=== PATIENT | male | born 1935 | race Two or more races ===

== ENCOUNTER → 2022-01-26 | Emergency (ER) | payer OTHER ==
[~2022-01-26] VITALS: Ht 165.1 cm; Wt 60.3 kg
[~2022-01-26] MED LIST: AVAPRO75 MG PO
== END | disposition home or self-care (01) ==
LOC: ER 20:01
DX: R42 Dizziness and giddiness (principal); I10 Essential (primary) hypertension; Z20.822 Contact with and (suspected) exposure to COVID-19

== ENCOUNTER 2024-12-01 01:31 | Emergency (ER) | payer OTHER ==
[~2024-12-01] VITALS: Ht 167.6 cm; Wt 57.6 kg
[2024-12-01] MEDS ORDERED: DIPHENHYDRAMINE HCL 50 MG/ML VIAL 1ML IV STA (03:28)
[2024-12-01] MEDS ORDERED: EPINEPHRINE HCL/PF 1 MG/ML AMPUL SUBCUTANEO STA (03:28)
[2024-12-01] MEDS ORDERED: METHYLPREDNISOLONE SOD SUCC 125 MG VIAL IV STA (03:29)
[2024-12-01] MEDS ORDERED: FAMOTIDINE/PF 20 MG/2 ML VIAL IV PUSH STA (03:29)
[2024-12-01] MEDS ORDERED: EPINEPHRINE HCL/PF 1 MG/ML AMPUL ONE (03:55)
[2024-12-01] MEDS ORDERED: FAMOTIDINE/PF 20 MG/2 ML VIAL ONE (03:56)
[2024-12-01] MEDS ORDERED: METHYLPREDNISOLONE SOD SUCC 125 MG VIAL ONE (03:56)
[2024-12-01] MEDS ORDERED: DIPHENHYDRAMINE HCL 50 MG/ML VIAL 1ML ONE (03:56)
[2024-12-01] MEDS ORDERED: ZYRTEC10 M3 PO (06:50)
[2024-12-01] MEDS ORDERED: MEDROL8 MG PO (06:50)
[2024-12-01] MEDS ORDERED: ORASEP SPRAY30 ML MM (06:56)
== END 2024-12-01 06:56 ==
LOC: ER
DX: T78.3XXA Angioneurotic edema, initial encounter (principal); I10 Essential (primary) hypertension
CPT/HCPCS: 96365; 99282; J1200; J3490